=== PATIENT | female | born 1990 | race Caucasian/White ===

== ENCOUNTER 2019-11-28 12:07 | Outpatient (CLI) | payer BC, SELFPAY | END 2019-11-28 12:08 | disposition home or self-care (01) | LOC: SPT 12:09 | PROVIDERS: Family Provider Family Medicine; PCP Family Medicine; Visit Provider Podiatrist Foot & Ankle Surgery | DX: Z46.89 Encounter for fitting and adjustment of other specified devices (principal); S93.692D Other sprain of left foot, subsequent encounter; X58.XXXD Exposure to other specified factors, subsequent encounter | CPT/HCPCS: L4361 ==

== ENCOUNTER 2019-12-22 08:21 | Outpatient (CLI) | payer BC, SELFPAY ==
--- NOTE | 2019-12-22 08:28 | FL_ITS ---
WS: [id number] UPPER GI WITH AIR AND SMALL BOWEL FOLLOW-THROUGH TECHNICAL: Double contrast upper GI with thin and thick barium and Gastrografin. Small bowel follow-t hrough. FLUOROSCOPY TIME: 3.8 minutes CLINICAL INFORMATION: ABDOMINAL PAIN, EPIGASTRIC COMPARISON: None. FINDINGS: Swallowing: Normal. Esophagus: No evidence of high-grade stricture or stenosis. Mild esophageal dysmotility with slightly delayed emptying. Active reflux is visualized into the mid and distal esophagus on the upright imagi ng. Gastroesophageal reflux: Present Stomach: Thickened gastric rugae consistent with gastritis. A few small gastric erosions in the body of the stomach. Duodenum: Normal. Other findings: Cholecystectomy clips. Normal visualized lumbar spine. 5 nonrib-bearing lumbar verteb ral bodies. SMALL BOWEL EXAMINATION Contrast material: 50/50 thin barium sulfate suspension. Transit time: 60 Minutes (normal = 30 - 240 minutes) Small bowel is normal in appearance. Normal jejunum. Ileum is normal in appearance. Normal ileocecal valve. No small bowel stricture, dilatation, adhesion, or mass. The terminal ileum is normal. FL/FL upperGI air smallbowel ser* IMPRESSION: 1. Normal small bowel and ileocecal valve. Normal transit time of 60 minutes. 2. Mild esophageal dysmotility with slightly delayed emptying. 3. Active esophageal reflux in the upright position to the mid and distal esop hagus on the initial imaging. No significant hiatal hernia. 4. A few small gastric erosions suspicious for peptic ulcer disease. Stomach c ould be further evaluated with endoscopy. 5. Thickened gastric rugae consistent with gastritis.
== END 2019-12-22 08:22 | disposition home or self-care (01) ==
LOC: RAD 08:25
PROVIDERS: PCP Family Medicine; Visit Provider Family Medicine
DX: R10.13 Epigastric pain (principal); K21.9 Gastro-esophageal reflux disease without esophagitis
CPT/HCPCS: 74246; 74248

== ENCOUNTER 2020-01-11 06:06 | Day surgery (SDC) | payer BC, SELFPAY ==
[2020-01-10 13:59] VITALS: BMI 21.6
[2020-01-11 06:26] LABS: OR HCG Qualitative Urine Negative (Negative)
--- NOTE | 2020-01-11 06:40 | P.ANESASSM_ITS ---
Pre-Anesthetic Assessment Pre-Anesthetic Assessment: Height/Weight: Height 1.73 m Weight 64.41 kg Preop Diagnosis: vomiting, dysphagia Proposed Procedure: Operation Date: 01/11/20 07:00 Proposed Procedures p EGD(Not Applicable) - Dieudonne Rhodes MD Was Beta Laura taken within 24 hours: N/A Last intake: Intake Last Liquid Date 01/10/20 Last Liquid Time 22:30 Last Solid Date 01/10/20 Last Solid Time 19:30 Social: Social History: Tobacco (1-2cig day) and No alcohol Exam: Pre-Anes Outpt Exam: alert, oriented x 3, clear to auscultation bilaterally and regular rate & rhythm Airway: Submandibular: WNL Cervical ROM: WNL MP: 1 Dentition: Full History/ROS: No significant history except as noted and No significant comp laints Pulmonary: Pulmonary: None reported CV/HEM: CV/HEM: None reported : : None reported Hepatic: Hepatic: None reported GI: GI: GERD Metabolic: Metabolic: None reported Musc/skel: Musc/skel: None reported Neuropsych: Neuropsych: Anxiety Anesthetic Plan: ASA status: 2 Anesthesia: MAC PFSH Anesthesia PFSH: Family History Denies family history of Diabetes Cancer Social History Smoking and tobacco status: current every day smoker Alcohol intake: current Alcohol intake frequency: holidays/special occasions only Household members: none Current occupational status: employed Current occupation: Self employeed, owns a [employer] Female Reproductive History: Date of last menstrual period: 01/10/20 Data Anesthesia Other Labs: Laboratory Results - last 48 hr 01/11/20 06:24 Urine HCG, Qual Negative Cardiac Studies: No Data to Display
[2020-01-11] MEDS: sodium chloride 0.9% 1,000 ML 30 ML IV (06:45)
--- NOTE | 2020-01-11 06:47 | W.PM.OPSUD ---
Surgery/Procedure H&P Update DATE OF PROCEDURE: January 11, 2020 DATE H&P PERFORMED: 01/09/20 H&P UPDATE INFORMATION: No changes to prior documentation PREOP DIAGNOSIS: vomiting, dysphagia PLANNED PROCEDURE: Operation Date: 01/11/20 07:00 Proposed Procedures p EGD(Not Applicable) - Dieudonne Rhodes MD
[2020-01-11 07:03] VITALS: BP 105/63; PULSE 64; RESP 16; TEMP 36.1; O2SAT 98
[2020-01-11 07:12] VITALS: BP 129/85; PULSE 62; RESP 18; O2SAT 100
--- NOTE | 2020-01-11 08:33 | ANE.PACU2 ---
Inpatient post-anesthesia follow up: Airway intact: Yes Vital signs: Temperature 97 F Pulse Rate 62 Respiratory Rate 18 Blood Pressure 129/85 Pulse Oximetry 100 Oxygen Delivery Me thod Room Air Oxygen Flow Rate Fraction of Inspir ed Oxygen Hydration adequate: Yes Nausea and vomiting: No Mental status: Baseline
[2020-01-15 06:50] LABS: H. Pylori / CLO Test Negative
== END 2020-01-11 07:25 | disposition home or self-care (01) ==
PROVIDERS: Anesthesiology; PCP Family Medicine; Visit Provider Surgery
PROC: 0DJ08ZZ Inspection of Upper Intestinal Tract, Via Natural or Artificial Opening Endoscopic (ICD-10-PCS; CPT 43235; principal; 2020-01-11 07:00)
DX: R11.10 Vomiting, unspecified (principal); R13.10 Dysphagia, unspecified; K29.70 Gastritis, unspecified, without bleeding; I10 Essential (primary) hypertension; F41.9 Anxiety disorder, unspecified; F32.9 Major depressive disorder, single episode, unspecified; K21.9 Gastro-esophageal reflux disease without esophagitis; Z87.891 Personal history of nicotine dependence; Z82.49 Family history of ischemic heart disease and other diseases of the circulatory system
CPT/HCPCS: 12345; 43239; 84703; 87077; J2001; J2704; J3010; J7030

== ENCOUNTER 2020-03-04 16:12 | Emergency (ER) | payer BC, SELFPAY ==
[2020-03-04] VITALS (9 sets, daily range): BP systolic 120–136; BP diastolic 73–87; PULSE 78–102; RESP 14–20; TEMP 36.6; O2SAT 95–99; BMI 21.2
--- NOTE | 2020-03-04 16:43 | CTR_ITS ---
PROCEDURE INFORMATION: Exam: CT Abdomen And Pelvis With Contrast Exam date and time: 03/04/2020 5:19 PM Age: 29 years old Clinical indication: Nausea; Abdominal pain; Localized; Right lower quadrant (rlq); Prior surgery; Surgery type: Gb, tubal; Additional info: Abd pain TECHNIQUE: Imaging protocol: Computed tomography of the abdomen and pelvis with intravenous contrast. Radiation optimization: All CT scans at this facility use at least one of these dose optimization techniques: automated exposure control; mA and/or kV adjustment per patient size (includes targeted exams where dose is matched to clinical indication); or iterative reconstruction. Contrast material: OMNI 300; Contrast volume: 95 ml; Contrast route: INTRAVENOUS (IV); COMPARISON: [facility] OB > 14 weeks 10/29/2016 9:11 AM RADIATION DOSE METRICS: Total DLP (mGy-cm): 548.84 FINDINGS: Lungs: Limited assessment lung bases without visible evidence of active cardiopulmonary process. Liver: Unremarkable. No mass. Gallbladder and bile ducts: Status post cholecystectomy. Pancreas: Normal. No ductal dilation. Spleen: Normal. No splenomegaly. Adrenals: Normal. No mass. Kidneys and ureters: Normal. No hydronephrosis. Stomach and bowel: Nonobstructive bowel pattern. No visible adynamic or reactive ileus. Appendix: The appendix is visualized appears noninflamed. Intraperitoneal space: No visible free fluid in the pelvis or generalized ascites. Vasculature: Unremarkable. No abdominal aortic aneurysm. Lymph nodes: No visible mesenteric or retroperitoneal lymphadenopathy. Bladder: Unremarkable as visualized. Reproductive: Unremarkable as visualized. Bones/joints: No visible active osseous pathology. Soft tissues: Unremarkable. CT/CT abdomen pelvis w con* [id number] IMPRESSION: 1. Currently no visible evidence of acute abdominal or pelvic pathologic process. 2. The appendix is visualized appears noninflamed. 3. Status post cholecystectomy. Radiation Dose CTDIVOL = (mGy): DLP = 548.84 (mGy-cm)
--- NOTE | 2020-03-04 16:46 | W.ED.ABDPA2 ---
Documented by User: Chris Diallo DO 03/08/20 15:26 HPI - Abdominal Pain General: Chief Complaint: Abdominal Pain Stated Complaint: abd pain Time Seen by Provider: 03/04/20 16:43 History of Present Illness: HPI narrative: 29-year-old female presents with sudden onset of right lower quadrant pain that began 45 minutes ago. She notices the only way to avoid the pain is to remain very very still even small bumps on the road were exquisitely painful in route to the hospital. She has no history of kidney stone she denies any dysuria urgency or frequency no hematuria. She had a little bit of vague right lower quadrant discomfort for the last 7 days. Her last menstrual period ended a week ago and was a little early for her somewhat light. She has had a lot of nausea but no vomiting or diarrhea. Her last meal was at 11 AM she ate a sandwich. MD elicited complaint: abdominal pain Pertinent past history: other (Previous tubal ligation) Onset (ago): minute(s) (45) Pain Consistency: constant Location: RLQ Severity: severe Quality: stabbing Radiation: none Migration to: no migration Exacerbating factors: movement Relieving factors: rest Associated Symptoms: Reports anorexia, GI cramping and nausea; Denies coffee ground emesis, diarrhea, dyspepsia, dysuria, fever(s), heartburn, hematochezia, hematuria, hematemesis, melena and vomiting Related Data: Date of Last Menstrual Period: 02/19/20 Review of Systems Const: Denies: fever(s) ENMT: Denies: throat pain, ear or mastoid pain, nasal discharge or nasal congestion Card: Denies: chest pain, edema, dyspnea on exertion or orthopnea Resp: Denies: dyspnea, productive cough or non-productive cough GI: Reports: nausea and GI cramping; Denies: vomiting, hematemesis, coffee ground emesis, heartburn, diarrhea, hematochezia or melena : Denies: dysuria or hematuria Skin/Breast: Denies: rash or pruritus PFSH ED PFSH: Surgical History (Updated 03/04/20 @ 16:50 by Chris Diallo DO) History of tubal ligation Hx of cholecystectomy Family History Denies family history of Diabetes Cancer Social History Smoking and tobacco status: current every day smoker Alcohol intake: current Alcohol intake frequency: holidays/special occasions only Household members: none Current occupational status: employed Current occupation: Self employeed, owns a [employer] Female Reproductive History: Date of last menstrual period: 02/19/20 Physical Exam Const: COMMON NORMALS: no acute distress GENERAL APPEARANCE: cooperative and comfortable ORIENTATION/CONSCIOUSNESS: Yes awake, Yes oriented to person, Yes oriented to place and Yes oriented to time HENMT: COMMON NORMALS: normocephalic and atraumatic HEAD & SCALP: normocephalic and atraumatic Eye: COMMON NORMALS: Equal, round and reactive pupils present, EOMs intact bilaterally, conjunctivae normal and no scleral icterus CONJUNCTIVA: Yes conjunctivae normal PUPIL: Yes Equal, round and reactive pupils present Neck/C-Spine: COMMON NORMALS: full ROM, no lymphadenopathy, supple and no JVD Lymph: LYMPHATIC: no lymphadenopathy noted and no lymphedema noted Resp: COMMON NORMALS: normal respiratory effort, No retractions, No use of accessory muscles and clear to auscultation bilaterally AUSCULTATION: clear to auscultation bilaterally Cardio: COMMON NORMALS: no JVD, regular rate, regular rhythm and No murmurs present (Cardio) RATE: regular rate RHYTHM: regular rhythm GI: COMMON NORMALS: No hepatosplenomegaly present AUSCULTATION: Yes normoactive bowel sounds PALPATION: Yes Tenderness to palpation present (GI) Details: RLQ, No Guarding due to palpation present (GI), Yes No hepatosplenomegaly present and Yes Rebound tenderness present Details: McBurney's point RECTAL EXAM: No Excoriation present (GI) OTHER: Initial exam patient has severe right lower quadrant tenderness just above McBurney's point with guarding and rebound. Severe pain to light percussion as well this improved by the end of her ER stay when I transfer care to Dr. Glass she was much less tender CT was unremarkable. Extremity: COMMON NORMALS: normal to inspection, capillary refill normal, no clubbing, cyanosis or edema, no calf tenderness and no pedal edema Neuro: SENSORIUM/ORIENTATION: Yes oriented to person, Yes oriented to place and Yes oriented to time Skin: COMMON NORMALS: no rashes or lesions noted GENERAL SKIN EXAM: no rashes or lesions noted Course Vital Signs: Vital signs: Vital Signs Temperature 97.8 F 03/04/20 16:29 Pulse Rate 78 03/04/20 20:37 Respiratory Rate 17 03/04/20 20:37 Blood Pressure 123/86 03/04/20 20:37 Pulse Oximetry 98 03/04/20 20:37 MDM - Abdominal Pain Lab Data: Labs: Lab Results 03/04/20 03/04/20 03/04/20 Range/Units 16:50 16:50 16:50 WBC 5.6 (4.0-10.0) 10^3/ uL RBC 4.52 (4.1-5.3) 10^6/u L Hgb 13.7 (11.5-15.3) g/dL Hct 42.6 (37.0-47.0) % MCV 94.2 (81-99) fL MCH 30.3 (28.0-34.0) pg MCHC 32.2 (30.0-36.0) g/dL RDW 12.5 (12.1-15.1) % Plt Count 146 (130-400) 10^3/c mm MPV 10.3 (7.4-10.4) fL Neut % (Auto) 53.3 % Lymph % (Auto) 36.3 % [place] % (Auto) 5.8 % Eos % (Auto) 3.8 % Baso % (Auto) 0.4 % Neut # (Auto) 2.97 (1.8-7.7) 10^3/u L Lymph # (Auto) 2.0 (0.8-4.8) 10^3/u L [place] # (Auto) 0.3 (0.2-0.9) 10^3/u L Eos # (Auto) 0.2 (0.0-0.8) 10^3/u L Baso # (Auto) 0.0 (0.0-0.1) 10^3/u L Nucleated RBC % (a uto) 0 % Nucleated RBCs # 0.0 /100WBC Sodium 135 L (136-145) mmol/L Potassium 3.7 (3.5-5.1) mmol/L Chloride 100 (98-107) mmol/L Carbon Dioxide 24 (22-29) mmol/L Anion Gap 14.7 (5-19) BUN 10 (6-20) mg/dL Creatinine 0.6 (0.5-0.9) mg/dL GFR Calculation 117.4 (90-130) mL/min Glucose 98 (65-115) mg/dL Calculated Osmolal ity 276 L (285-295) mOsm/k g Calcium 9.3 (8.5-10.5) mg/dL Total Bilirubin 0.6 (0.15-1.2) mg/dL AST 22 (0-32) U/L ALT 22 (0-33) U/L Alkaline Phosphata se 63 (35-105) IU/L Total Protein 7.4 (6.6-8.7) g/dL Albumin 4.7 (3.5-5.2) g/dL Globulin 2.7 (1.3-4.6) g/dL Lipase 14 (13-60) U/L HCG, Qual Negative (Negative) Urine Color (Yellow) Urine Appearance (CLEAR) Urine pH (5-7) Ur Specific Gravit y (1.005-1.030) Urine Protein (Negative) Urine Glucose (UA) (Normal) Urine Ketones (Negative) Urine Blood (Negative) Urine Nitrate (Negative) Urine Bilirubin (NEGATIVE) Urine Urobilinogen (Negative) mg/dL Ur Leukocyte Camille ase (Negative) 03/04/20 Range/Units 17:12 WBC (4.0-10.0) 10^3/ uL RBC (4.1-5.3) 10^6/u L Hgb (11.5-15.3) g/dL Hct (37.0-47.0) % MCV (81-99) fL MCH (28.0-34.0) pg MCHC (30.0-36.0) g/dL RDW (12.1-15.1) % Plt Count (130-400) 10^3/c mm MPV (7.4-10.4) fL Neut % (Auto) % Lymph % (Auto) % [place] % (Auto) % Eos % (Auto) % Baso % (Auto) % Neut # (Auto) (1.8-7.7) 10^3/u L Lymph # (Auto) (0.8-4.8) 10^3/u L [place] # (Auto) (0.2-0.9) 10^3/u L Eos # (Auto) (0.0-0.8) 10^3/u L Baso # (Auto) (0.0-0.1) 10^3/u L Nucleated RBC % (a uto) % Nucleated RBCs # /100WBC Sodium (136-145) mmol/L Potassium (3.5-5.1) mmol/L Chloride (98-107) mmol/L Carbon Dioxide (22-29) mmol/L Anion Gap (5-19) BUN (6-20) mg/dL Creatinine (0.5-0.9) mg/dL GFR Calculation (90-130) mL/min Glucose (65-115) mg/dL Calculated Osmolal ity (285-295) mOsm/k g Calcium (8.5-10.5) mg/dL Total Bilirubin (0.15-1.2) mg/dL AST (0-32) U/L ALT (0-33) U/L Alkaline Phosphata se (35-105) IU/L Total Protein (6.6-8.7) g/dL Albumin (3.5-5.2) g/dL Globulin (1.3-4.6) g/dL Lipase (13-60) U/L HCG, Qual (Negative) Urine Color Yellow (Yellow) Urine Appearance Clear (CLEAR) Urine pH 5 (5-7) Ur Specific Gravit y 1.020 (1.005-1.030) Urine Protein Neg (Negative) Urine Glucose (UA) Norm (Normal) Urine Ketones 1+ H (Negative) Urine Blood Neg (Negative) Urine Nitrate Negative (Negative) Urine Bilirubin Neg (NEGATIVE) Urine Urobilinogen 1 H (Negative) mg/dL Ur Leukocyte Camille ase Negative (Negative) Discharge Plan Discharge Patient Disposition: Home Clinical Impression: Abdominal pain Qualifiers: Abdominal location: right lower quadrant Qualified Code(s): R10.31 - Right lower quadrant pain Condition: Stable Prescriptions: No Action alprazolam 1 mg tablet 0.5 - 1 mg PO TID PRN (Reason: unknown) RF: 0 duloxetine 30 mg capsule,delayed release(DR/EC) 30 mg PO BID RF: 0 hydrocodone-acetaminophen 5-325 mg tablet 1 tab PO Q6H PRN (Reason: pain) Qty: 20 RF: 0 Zofran 4 mg tablet 4 mg PO Q6H PRN (Reason: nausea and vomiting) Qty: 20 RF: 0 Discharge Orders: Discharge Order (Routine); Ordered 03/04/20 Ordered By: Amisha Decker Referrals: Amisha Decker [Emergency Provider] - 1-3 days (Return to the ER tomorrow morning for recheck of your abdominal pain. Return sooner for increased pain or any new developing symptoms.) Juan Velasquez DO [Primary Care Provider] - Discharge Diet: Clear Liquid Discharge Activity: Increase activity as tolerated Patient Instructions: Abdominal Pain (ED) Activity Restrictions/Additional Instructions: Please return to the ER immediately for any of the signs or symptoms listed on your discharge instruction sheets, worsening/changing of your symptoms, you are not getting better as quickly as expected, or for ANY other cause or concerns. Please return to the ER tomorrow morning for recheck to rule out appendicitis as well as any ovary problems. Return sooner for increased pain, fever, vomiting, vaginal discharge or bleeding, or for any other cause for concern. Discharge Date/Time: 03/04/20 20:36 Sign Out Sign Out Data: Patient Sign Out occurred on 03/04/20 at 18:25. Patient's care was discussed, and care was transferred from to Amisha Decker. Coding Level of Care Code ED Bath Attendant for Chg Fwd Exam Comprehensive Documented by User: Amisha Decker 03/04/20 20:28 HPI - Abdominal Pain General: Chief Complaint: Abdominal Pain Stated Complaint: abd pain Time Seen by Provider: 03/04/20 16:43 PFSH ED PFSH: Surgical History (Updated 03/04/20 @ 16:50 by Chris Diallo DO) History of tubal ligation Hx of cholecystectomy Family History Denies family history of Diabetes Cancer Social History Smoking and tobacco status: current every day smoker Alcohol intake: current Alcohol intake frequency: holidays/special occasions only Household members: none Current occupational status: employed Current occupation: Self employeed, owns a [employer] Vital Signs: Vital signs: Vital Signs Temperature 97.8 F 03/04/20 16:29 Pulse Rate 78 03/04/20 20:37 Respiratory Rate 17 03/04/20 20:37 Blood Pressure 123/86 03/04/20 20:37 Pulse Oximetry 98 03/04/20 20:37 MDM - Abdominal Pain MDM Narrative: Medical decision making narrative: Lui is a very nice 29-year-old female who comes in with 5 days of a dull achy pain and then sudden onset of pain in her right lower quadrant. CT scan reveals no evidence of appendicitis, no evidence of hydronephrosis or ureteral stone and the pelvic organs appeared normal. The patient has a history of ovarian torsion on the left that was manually just torsed in the past by Dr. Dempsey. The patient states this pain does not feel like when she had an ovarian torsion. She did agree to pelvic ultrasound and pelvic ultrasound is normal and tech states that there is no evidence of torsion but only venous flow was documented coming from the ovary no arterial flow. Her reasoning for no torsion is if there is venous flow coming from the ovary there is arterial flow she just cannot locate the arterial flow on ultrasound. The patient did refuse intravaginal pelvic ultrasound which likely would have documented this. I did discuss this with the patient and she would prefer not to have a pelvic ultrasound. She does understand the risks ovarian torsion can increase pain and even infection and sepsis. At this time though she wants to be discharged but does agree to follow-up tomorrow for recheck for appendicitis and if she still having pain she states she would undergo another ultrasound at that time. She is had a tubal ligation and she is not interested in fertility. She states she just wants the pain to improve and her pain is almost gone at this time. She does agree to return sooner if her symptoms change or worsen. Lab Data: Attestation: I reviewed the patient's lab results. Labs: Lab Results 03/04/20 03/04/20 03/04/20 Range/Units 16:50 16:50 16:50 WBC 5.6 (4.0-10.0) 10^3/ uL RBC 4.52 (4.1-5.3) 10^6/u L Hgb 13.7 (11.5-15.3) g/dL Hct 42.6 (37.0-47.0) % MCV 94.2 (81-99) fL MCH 30.3 (28.0-34.0) pg MCHC 32.2 (30.0-36.0) g/dL RDW 12.5 (12.1-15.1) % Plt Count 146 (130-400) 10^3/c mm MPV 10.3 (7.4-10.4) fL Neut % (Auto) 53.3 % Lymph % (Auto) 36.3 % [place] % (Auto) 5.8 % Eos % (Auto) 3.8 % Baso % (Auto) 0.4 % Neut # (Auto) 2.97 (1.8-7.7) 10^3/u L Lymph # (Auto) 2.0 (0.8-4.8) 10^3/u L [place] # (Auto) 0.3 (0.2-0.9) 10^3/u L Eos # (Auto) 0.2 (0.0-0.8) 10^3/u L Baso # (Auto) 0.0 (0.0-0.1) 10^3/u L Nucleated RBC % (a uto) 0 % Nucleated RBCs # 0.0 /100WBC Sodium 135 L (136-145) mmol/L Potassium 3.7 (3.5-5.1) mmol/L Chloride 100 (98-107) mmol/L Carbon Dioxide 24 (22-29) mmol/L Anion Gap 14.7 (5-19) BUN 10 (6-20) mg/dL Creatinine 0.6 (0.5-0.9) mg/dL GFR Calculation 117.4 (90-130) mL/min Glucose 98 (65-115) mg/dL Calculated Osmolal ity 276 L (285-295) mOsm/k g Calcium 9.3 (8.5-10.5) mg/dL Total Bilirubin 0.6 (0.15-1.2) mg/dL AST 22 (0-32) U/L ALT 22 (0-33) U/L Alkaline Phosphata se 63 (35-105) IU/L Total Protein 7.4 (6.6-8.7) g/dL Albumin 4.7 (3.5-5.2) g/dL Globulin 2.7 (1.3-4.6) g/dL Lipase 14 (13-60) U/L HCG, Qual Negative (Negative) Urine Color (Yellow) Urine Appearance (CLEAR) Urine pH (5-7) Ur Specific Gravit y (1.005-1.030) Urine Protein (Negative) Urine Glucose (UA) (Normal) Urine Ketones (Negative) Urine Blood (Negative) Urine Nitrate (Negative) Urine Bilirubin (NEGATIVE) Urine Urobilinogen (Negative) mg/dL Ur Leukocyte Camille ase (Negative) 03/04/20 Range/Units 17:12 WBC (4.0-10.0) 10^3/ uL RBC (4.1-5.3) 10^6/u L Hgb (11.5-15.3) g/dL Hct (37.0-47.0) % MCV (81-99) fL MCH (28.0-34.0) pg MCHC (30.0-36.0) g/dL RDW (12.1-15.1) % Plt Count (130-400) 10^3/c mm MPV (7.4-10.4) fL Neut % (Auto) % Lymph % (Auto) % [place] % (Auto) % Eos % (Auto) % Baso % (Auto) % Neut # (Auto) (1.8-7.7) 10^3/u L Lymph # (Auto) (0.8-4.8) 10^3/u L [place] # (Auto) (0.2-0.9) 10^3/u L Eos # (Auto) (0.0-0.8) 10^3/u L Baso # (Auto) (0.0-0.1) 10^3/u L Nucleated RBC % (a uto) % Nucleated RBCs # /100WBC Sodium (136-145) mmol/L Potassium (3.5-5.1) mmol/L Chloride (98-107) mmol/L Carbon Dioxide (22-29) mmol/L Anion Gap (5-19) BUN (6-20) mg/dL Creatinine (0.5-0.9) mg/dL GFR Calculation (90-130) mL/min Glucose (65-115) mg/dL Calculated Osmolal ity (285-295) mOsm/k g Calcium (8.5-10.5) mg/dL Total Bilirubin (0.15-1.2) mg/dL AST (0-32) U/L ALT (0-33) U/L Alkaline Phosphata se (35-105) IU/L Total Protein (6.6-8.7) g/dL Albumin (3.5-5.2) g/dL Globulin (1.3-4.6) g/dL Lipase (13-60) U/L HCG, Qual (Negative) Urine Color Yellow (Yellow) Urine Appearance Clear (CLEAR) Urine pH 5 (5-7) Ur Specific Gravit y 1.020 (1.005-1.030) Urine Protein Neg (Negative) Urine Glucose (UA) Norm (Normal) Urine Ketones 1+ H (Negative) Urine Blood Neg (Negative) Urine Nitrate Negative (Negative) Urine Bilirubin Neg (NEGATIVE) Urine Urobilinogen 1 H (Negative) mg/dL Ur Leukocyte Camille ase Negative (Negative) Imaging Data ^: CT Abd/Pel: Radiologist's impression: [place] [id number] CT Scan Report Signed Patient: Martina Patrick Unit #: [id number] : 1990 Age/Sex: 29 / F ADM Date: 03/04/20 Loc: ER Room/Bed: Attending Dr: Ordering Provider/Ordering MD: Chris Diallo DO Date of Service: 03/04/20 Procedure(s): CT abdomen pelvis w con* [id number] Accession Number(s): [id number] Report Number: [id number] PROCEDURE INFORMATION: Exam: CT Abdomen And Pelvis With Contrast Exam date and time: 03/04/2020 5:19 PM Age: 29 years old Clinical indication: Nausea; Abdominal pain; Localized; Right lower quadrant (rlq); Prior surgery; Surgery type: Gb, tubal; Additional info: Abd pain TECHNIQUE: Imaging protocol: Computed tomography of the abdomen and pelvis with intravenous contrast. Radiation optimization: All CT scans at this facility use at least one of these dose optimization techniques: automated exposure control; mA and/or kV adjustment per patient size (includes targeted exams where dose is matched to clinical indication); or iterative reconstruction. Contrast material: OMNI 300; Contrast volume: 95 ml; Contrast route: INTRAVENOUS (IV); COMPARISON: [facility] [place] OB > 14 weeks 10/29/2016 9:11 AM RADIATION DOSE METRICS: Total DLP (mGy-cm): 548.84 FINDINGS: Lungs: Limited assessment lung bases without visible evidence of active cardiopulmonary process. Liver: Unremarkable. No mass. Gallbladder and bile ducts: Status post cholecystectomy. Pancreas: Normal. No ductal dilation. Spleen: Normal. No splenomegaly. Adrenals: Normal. No mass. Kidneys and ureters: Normal. No hydronephrosis. Stomach and bowel: Nonobstructive bowel pattern. No visible adynamic or reactive ileus. Appendix: The appendix is visualized appears noninflamed. Intraperitoneal space: No visible free fluid in the pelvis or generalized ascites. Vasculature: Unremarkable. No abdominal aortic aneurysm. Lymph nodes: No visible mesenteric or retroperitoneal lymphadenopathy. Bladder: Unremarkable as visualized. Reproductive: Unremarkable as visualized. Bones/joints: No visible active osseous pathology. Soft tissues: Unremarkable. CT/CT abdomen pelvis w con* [id number] IMPRESSION: 1. Currently no visible evidence of acute abdominal or pelvic pathologic process. 2. The appendix is visualized appears noninflamed. 3. Status post cholecystectomy. Radiation Dose CTDIVOL = (mGy): DLP = 548.84 (mGy-cm) Dictated By: Raymundo Forrest Signed By: Raymundo Forrest Signed Date/Time: 03/04/201827 DD/ 26 US: My impression: Pelvic ultrasound, tech interpretation -no acute findings. No evidence of ovarian torsion on the right. No cyst, no free fluid. Left ovary not seen. Discharge Plan Discharge Patient Disposition: Home Clinical Impression: Abdominal pain Qualifiers: Abdominal location: right lower quadrant Qualified Code(s): R10.31 - Right lower quadrant pain Condition: Stable Prescriptions: No Action alprazolam 1 mg tablet 0.5 - 1 mg PO TID PRN (Reason: unknown) RF: 0 duloxetine 30 mg capsule,delayed release(DR/EC) 30 mg PO BID RF: 0 hydrocodone-acetaminophen 5-325 mg tablet 1 tab PO Q6H PRN (Reason: pain) Qty: 20 RF: 0 Zofran 4 mg tablet 4 mg PO Q6H PRN (Reason: nausea and vomiting) Qty: 20 RF: 0 Discharge Orders: Discharge Order (Routine); Ordered 03/04/20 Ordered By: Amisha Decker Referrals: Amisha Decker [Emergency Provider] - 1-3 days (Return to the ER tomorrow morning for recheck of your abdominal pain. Return sooner for increased pain or any new developing symptoms.) Juan Velasquez DO [Primary Care Provider] - Discharge Diet: Clear Liquid Discharge Activity: Increase activity as tolerated Patient Instructions: Abdominal Pain (ED) Activity Restrictions/Additional Instructions: Please return to the ER immediately for any of the signs or symptoms listed on your discharge instruction sheets, worsening/changing of your symptoms, you are not getting better as quickly as expected, or for ANY other cause or concerns. Please return to the ER tomorrow morning for recheck to rule out appendicitis as well as any ovary problems. Return sooner for increased pain, fever, vomiting, vaginal discharge or bleeding, or for any other cause for concern. Discharge Date/Time: 03/04/20 20:36 Sign Out Sign Out Data: Patient Sign Out occurred on 03/04/20 at 18:25. Patient's care was discussed, and care was transferred from to Amisha Decker. Coding Level of Care Code ED Bath Attendant for Woody Fwd Exam Comprehensive
[2020-03-04] MEDS: morphine 4 mg/mL SDV 1 mL 8 MG IVP (16:56)
[2020-03-04] MEDS: sodium chloride 0.9% 1,000 ML 999 ML IV (16:57)
[2020-03-04] MEDS: ondansetron 2 mg/ML SDV 2 mL 4 MG IVP (16:57)
[2020-03-04 17:02] LABS: Basophils % 0.4 %; Eosinophils # 0.2 10^3/uL (0.0-0.8); Eosinophils % 3.8 %; Hematocrit 42.6 % (37.0-47.0); Hemoglobin 13.7 g/dL (11.5-15.3); Lymphocytes % 36.3 %; Mean Corpuscular HGB Conc 32.2 g/dL (30.0-36.0); Mean Corpuscular Hemoglobin 30.3 pg (28.0-34.0); Mean Corpuscular Volume 94.2 fL (81-99); Mean Platelet Volume 10.3 fL (7.4-10.4); Monocytes # 0.3 10^3/uL (0.2-0.9); Monocytes % 5.8 %; Neutrophils # 2.97 10^3/uL (1.8-7.7); Neutrophils % 53.3 %; Nucleated Red Blood Cells % 0 %; Platelet Count 146 10^3/cmm (130-400); Red Blood Count 4.52 10^6/uL (4.1-5.3); Red Cell Distribution Width 12.5 % (12.1-15.1); White Blood Count 5.6 10^3/uL (4.0-10.0)
[2020-03-04 17:22] LABS: Add Urine Microscopic? NO
[2020-03-04 17:29] LABS: Alanine Aminotransferase 22 U/L (0-33); Albumin Level 4.7 g/dL (3.5-5.2); Alkaline Phosphatase 63 IU/L (35-105); Anion Gap 14.7 (5-19); Aspartate Amino Transferase 22 U/L (0-32); Blood Urea Nitrogen 10 mg/dL (6-20); Calcium 9.3 mg/dL (8.5-10.5); Carbon Dioxide 24 mmol/L (22-29); Chloride 100 mmol/L (98-107); Globulin 2.7 g/dL (1.3-4.6); Glomerular Filtration Rate 117.4 mL/min (90-130); Glucose 98 mg/dL (65-115); Lipase 14 U/L (13-60); Osmolality Calculated 276 mOsm/kg (285-295); Potassium 3.7 mmol/L (3.5-5.1); Sodium 135 mmol/L (136-145); Total Bilirubin 0.6 mg/dL (0.15-1.2); Total Protein 7.4 g/dL (6.6-8.7)
[2020-03-04 17:41] LABS: HCG, Serum Qual Negative (Negative)
[2020-03-04 17:50] LABS: Bilirubin Urine Neg (NEGATIVE); Blood Urine Neg (Negative); Glucose Urine UA Norm (Normal); Ketones Urine 1+ (Negative); Leukocyte Esterase Urine Negative (Negative); Nitrate Urine Negative (Negative); Protein Urine Neg (Negative); Urine Appearance Clear (CLEAR); Urine Color Yellow (Yellow); Urobilinogen Urine 1 mg/dL (Negative); pH Urine 5 (5-7)
[2020-03-04] MEDS: iohexol 300 mg/mL 100 mL Btl IV (18:02)
--- NOTE | 2020-03-04 19:06 | USR_ITS ---
PROCEDURE INFORMATION: Exam: US Nonobstetric Pelvis; Complete Exam date and time: 03/04/2020 8:16 PM Age: 29 years old Clinical indication: Pelvic pain; Prior surgery; Surgery date: 6+ months; Surgery type: Tubal TECHNIQUE: Imaging protocol: Transabdominal pelvic nonobstetric ultrasound. Complete exam. Real time ultrasound with image documentation. COMPARISON: CT abdomen pelvis w con* [id number] 03/04/2020 5:55 PM FINDINGS: Uterus/cervix: Anteverted nongravid multiparous appearing uterus dimensions 8.4 cm x 4.3 cm x 6 cm. Endometrial stripe appears normal measuring a maximum diameter of 8 mm. No free endometrial fluid identified. Normal appearing transition zone. Right adnexa: Right ovary is visualized and measures approximately 4.3 cm x 2.1 cm x 3.1 cm. Simple appearing follicle cysts. Dominant follicle/physiologic cyst measures 18 mm in diameter. Positive vascular flow to Doppler and color assessment. Left adnexa: Left ovary not sonographically visualized. No sonographically visible left adnexal pathologic process. Free fluid: None. Bladder: Unremarkable as imaged. US/US pelvic complete* [id number] IMPRESSION: No grossly visible sonographic evidence of active pelvic pathology.
== END 2020-03-04 20:36 | disposition home or self-care (01) ==
PROVIDERS: Physician Assistant; Emergency Provider Emergency Medicine; PCP Family Medicine
DX: R10.31 Right lower quadrant pain (principal); F17.210 Nicotine dependence, cigarettes, uncomplicated
CPT/HCPCS: 12345; 36415; 74177; 76856; 80053; 81003; 83690; 84703; 85025; 96361; 96374; 96375; 99283; 99284; J2270; J2405; J7030; Q9967

== ENCOUNTER 2020-03-05 11:18 | Emergency (ER) | payer BC, SELFPAY ==
[2020-03-05 11:20] VITALS: BMI 22.0
[2020-03-05 11:25] VITALS: BP 106/69; PULSE 75; RESP 16; TEMP 36.8; O2SAT 97
--- NOTE | 2020-03-05 11:29 | CT_ITS ---
WS: [id number] CT ABDOMEN AND PELVIS WITH CONTRAST HISTORY: abd pain, persistent RIGHT lower quadrant pain for 3 days. TECHNIQUE: Imaging performed of the abdomen and pelvis with IV contrast. Single phase imaging of the abdomen. Coronal and sagittal reformats are submitted. All CT scans at [facility] use at least one of these dose optimization techniques: automated exposure control; mA and/or kV adjustment per patient size (includes targeted exams where dose is matched to clinical indication); or iterativ e reconstruction. IV CONTRAST: Omnipaque 300; 95 mL IV. Oral contrast: No DLP: 542.96 mGy.cm COMPARISON: 03/04/2020 CT and ultrasound. Lower thorax: Lung bases are clear. Heart is normal size. No hiatal hernia. Liver/biliary system: Normal size liver. There is mild central bile duct dilatation which is probably physiologic and related to prior cholecystectomy. Mild hepatic steatosis along the falciform ligamen t. Gallbladder: Status post cholecystectomy. Pancreas: Normal. Spleen: Normal. Adrenal glands: Normal. Right kidney: Normal. Left kidney: Normal. Aorta: Normal. Lymphadenopathy: None. Free fluid: There is a small amount of free fluid in the pelvis. GI tract: Appendix is identified in the RIGHT lower quadrant and normal. There is still air within th e appendix with no increase in size. There is moderate fecal retention throughout the entire colon, m ost significant in the sigmoid and rectal region. Abdominal wall: Unremarkable abdominal wall. No hernia. Pelvis: Uterus is anteverted. Small amount of fluid along the endometrial canal. The RIGHT ovary is e nlarged and contains several small follicles and cysts. Peripheral enhancement within one of the cyst is probably a corpus luteum and may have undergone rupture. Corpus luteal cyst measures 13 mm. Bones: Unremarkable. Notified Chris Diallo DO at 03/05/2020 12:[address]/CT abdomen pelvis w con* [id number] IMPRESSION: 1. Normal appendix. 2. Small amount of free fluid in the pelvis is new since 03/04/2020. 3. Slightly enlarged RIGHT ovary with a peripherally enhancing 13 mm cyst whic h is probably a corpus luteal cyst and may have hemorrhaged and be collapsing. 4. Constipation. 5. Prior cholecystectomy.
--- NOTE | 2020-03-05 11:47 | W.ED.ABDPA2 ---
HPI - Abdominal Pain General: Chief Complaint: Abdominal Pain Stated Complaint: ABD PAIN Time Seen by Provider: 03/05/20 11:29 History of Present Illness: HPI narrative: 29-year-old female presents to the emergency room for recheck she still having persistent right-sided pain although it has migrated a little higher in the abdomen at this point she was seen last night CT was negative for acute appendicitis which is what it appeared most likely it burst based on her physical exam she did have a transabdominal pelvic ultrasound there was good venous blood flow out of the right ovary but no arterial flow was noted. MD elicited complaint: abdominal pain Pertinent past history: constipation Onset (ago): day(s) Pain Consistency: intermittent Location: Diffuse (Localized slightly to the right side) Quality: cramping Radiation: R flank Migration to: RLQ and R flank Exacerbating factors: movement Relieving factors: rest Associated Symptoms: Reports anorexia, change in bowel habits, constipation, GI cramping, poor appetite and vomiting; Denies coffee ground emesis, diarrhea, dyspepsia, fever(s), heartburn, hematochezia, hematuria, hematemesis, fecal incontinence, loose stools, melena, nausea and syncope Related Data: Date of Last Menstrual Period: 02/27/20 Review of Systems Const: Denies: fever(s) ENMT: Denies: throat pain, ear or mastoid pain, nasal discharge or nasal congestion Card: Denies: syncope Resp: Denies: dyspnea, productive cough or non-productive cough GI: Reports: vomiting, constipation, GI cramping and change in bowel habits; Denies: nausea, hematemesis, coffee ground emesis, heartburn, diarrhea, fecal incontinence, hematochezia or melena : Denies: hematuria Skin/Breast: Denies: rash or pruritus PFSH ED PFSH: Surgical History History of tubal ligation Hx of cholecystectomy Family History Denies family history of Diabetes Cancer Social History Smoking and tobacco status: current every day smoker Alcohol intake: current Alcohol intake frequency: holidays/special occasions only Household members: none Current occupational status: employed Current occupation: Self employeed, owns a [employer] Female Reproductive History: Date of last menstrual period: 02/27/20 Physical Exam Const: GENERAL APPEARANCE: cooperative ORIENTATION/CONSCIOUSNESS: Yes awake, Yes oriented to person, Yes oriented to place and Yes oriented to time HENMT: COMMON NORMALS: normocephalic and atraumatic HEAD & SCALP: normocephalic and atraumatic Eye: COMMON NORMALS: Equal, round and reactive pupils present, EOMs intact bilaterally, conjunctivae normal and no scleral icterus CONJUNCTIVA: Yes conjunctivae normal PUPIL: Yes Equal, round and reactive pupils present Neck/C-Spine: COMMON NORMALS: full ROM, no lymphadenopathy, supple and no JVD Lymph: LYMPHATIC: no lymphadenopathy noted and no lymphedema noted Resp: COMMON NORMALS: normal respiratory effort, No retractions, No use of accessory muscles and clear to auscultation bilaterally AUSCULTATION: clear to auscultation bilaterally Cardio: COMMON NORMALS: no JVD, regular rate, regular rhythm and No murmurs present (Cardio) RATE: regular rate RHYTHM: regular rhythm GI: COMMON NORMALS: No hepatosplenomegaly present AUSCULTATION: Yes normoactive bowel sounds PALPATION: Yes Tenderness to palpation present (GI) (Right mid abdomen) Details: RLQ, No Guarding due to palpation present (GI) and Yes No hepatosplenomegaly present Extremity: COMMON NORMALS: normal to inspection, capillary refill normal, no clubbing, cyanosis or edema, no calf tenderness and no pedal edema Neuro: SENSORIUM/ORIENTATION: Yes oriented to person, Yes oriented to place and Yes oriented to time Skin: COMMON NORMALS: no rashes or lesions noted GENERAL SKIN EXAM: no rashes or lesions noted Course Vital Signs: Vital signs: Vital Signs Temperature 98.2 F 03/05/20 14:11 Pulse Rate 82 03/05/20 14:11 Respiratory Rate 18 03/05/20 14:11 Blood Pressure 122/85 03/05/20 14:11 Pulse Oximetry 96 03/05/20 14:11 MDM - Abdominal Pain MDM Narrative: Medical decision making narrative: Pelvic ultrasound shows fluid in the pelvis I think that was causing some of her pain as well as constipation her white count is unremarkable. We will have her use mag citrate at home hydrocodone and antiemetics. Rest suspect the fluid from hemorrhagic cyst this was causing major of her pain she is worsening or change symptoms return her appendix is well-visualized and is normal. Lab Data: Labs: Lab Results 03/05/20 03/05/20 Range/Units 11:46 11:46 WBC 5.6 (4.0-10.0) 10^3/ uL RBC 4.65 (4.1-5.3) 10^6/u L Hgb 14.0 (11.5-15.3) g/dL Hct 43.2 (37.0-47.0) % MCV 92.9 (81-99) fL MCH 30.1 (28.0-34.0) pg MCHC 32.4 (30.0-36.0) g/dL RDW 12.4 (12.1-15.1) % Plt Count 145 (130-400) 10^3/c mm MPV 10.3 (7.4-10.4) fL Neut % (Auto) 67.4 % Lymph % (Auto) 22.2 % Cook % (Auto) 5.4 % Eos % (Auto) 3.9 % Baso % (Auto) 0.9 % Neut # (Auto) 3.77 (1.8-7.7) 10^3/u L Lymph # (Auto) 1.2 (0.8-4.8) 10^3/u L Cook # (Auto) 0.3 (0.2-0.9) 10^3/u L Eos # (Auto) 0.2 (0.0-0.8) 10^3/u L Baso # (Auto) 0.1 (0.0-0.1) 10^3/u L Nucleated RBC % (a uto) 0 % Nucleated RBCs # 0.0 /100WBC Sodium 134 L (136-145) mmol/L Potassium 4.3 (3.5-5.1) mmol/L Chloride 103 (98-107) mmol/L Carbon Dioxide 23 (22-29) mmol/L Anion Gap 12.3 (5-19) BUN 8 (6-20) mg/dL Creatinine 0.6 (0.5-0.9) mg/dL GFR Calculation 117.4 (90-130) mL/min Glucose 104 (65-115) mg/dL Calculated Osmolal ity 274 L (285-295) mOsm/k g Calcium 8.8 (8.5-10.5) mg/dL Total Bilirubin 0.8 (0.15-1.2) mg/dL AST 29 (0-32) U/L ALT 25 (0-33) U/L Alkaline Phosphata se 63 (35-105) IU/L Total Protein 7.0 (6.6-8.7) g/dL Albumin 4.1 (3.5-5.2) g/dL Globulin 2.9 (1.3-4.6) g/dL Discharge Plan Discharge Patient Disposition: Home Clinical Impression: Ovarian cyst, Constipation Condition: Stable Prescriptions: New hydrocodone-acetaminophen 5-325 mg tablet 1 tab PO Q6H PRN (Reason: pain) Qty: 20 RF: 0 Zofran 4 mg tablet 4 mg PO Q6H PRN (Reason: nausea and vomiting) Qty: 20 RF: 0 No Action alprazolam 1 mg tablet 0.5 - 1 mg PO TID PRN (Reason: unknown) RF: 0 duloxetine 30 mg capsule,delayed release(DR/EC) 30 mg PO BID RF: 0 Discharge Orders: Discharge Order (Routine); Ordered 03/05/20 Ordered By: Chris Diallo Referrals: Juan Velasquez, DO [Primary Care Provider] - Discharge Diet: Usual diet Discharge Activity: Increase activity as tolerated Activity Restrictions/Additional Instructions: Return if you have any further problems. Mag citrate for constipation you can get this [id number] use half a bottle every 4 to 6 hours until desired results are achieved Discharge Date/Time: 03/05/20 14:18 Coding Level of Care Code ED Pharmacy Informatics Manager for [facility]
[2020-03-05 11:51] LABS: Basophils # 0.1 10^3/uL (0.0-0.1); Basophils % 0.9 %; Eosinophils # 0.2 10^3/uL (0.0-0.8); Eosinophils % 3.9 %; Hematocrit 43.2 % (37.0-47.0); Lymphocytes # 1.2 10^3/uL (0.8-4.8); Lymphocytes % 22.2 %; Mean Corpuscular HGB Conc 32.4 g/dL (30.0-36.0); Mean Corpuscular Hemoglobin 30.1 pg (28.0-34.0); Mean Corpuscular Volume 92.9 fL (81-99); Mean Platelet Volume 10.3 fL (7.4-10.4); Monocytes # 0.3 10^3/uL (0.2-0.9); Monocytes % 5.4 %; Neutrophils # 3.77 10^3/uL (1.8-7.7); Neutrophils % 67.4 %; Nucleated Red Blood Cells % 0 %; Platelet Count 145 10^3/cmm (130-400); Red Blood Count 4.65 10^6/uL (4.1-5.3); Red Cell Distribution Width 12.4 % (12.1-15.1); White Blood Count 5.6 10^3/uL (4.0-10.0)
[2020-03-05] MEDS: ondansetron 2 mg/ML SDV 2 mL 4 MG IVP ×2 (11:59→13:51)
[2020-03-05] MEDS: sodium chloride 0.9% 1,000 ML 999 ML IV (12:00)
[2020-03-05] MEDS: iohexol 300 mg/mL 100 mL Btl IV (12:14)
[2020-03-05 13:03] LABS: Alanine Aminotransferase 25 U/L (0-33); Albumin Level 4.1 g/dL (3.5-5.2); Alkaline Phosphatase 63 IU/L (35-105); Anion Gap 12.3 (5-19); Aspartate Amino Transferase 29 U/L (0-32); Blood Urea Nitrogen 8 mg/dL (6-20); Calcium 8.8 mg/dL (8.5-10.5); Carbon Dioxide 23 mmol/L (22-29); Chloride 103 mmol/L (98-107); Globulin 2.9 g/dL (1.3-4.6); Glomerular Filtration Rate 117.4 mL/min (90-130); Glucose 104 mg/dL (65-115); Osmolality Calculated 274 mOsm/kg (285-295); Potassium 4.3 mmol/L (3.5-5.1); Sodium 134 mmol/L (136-145); Total Bilirubin 0.8 mg/dL (0.15-1.2)
[2020-03-05 13:47] VITALS: RESP 18
[2020-03-05] MEDS: morphine 4 mg/mL SDV 1 mL 8 MG IVP (13:47)
[2020-03-05 14:11] VITALS: BP 122/85; PULSE 82; RESP 18; TEMP 36.8; O2SAT 96
== END 2020-03-05 14:18 | disposition home or self-care (01) ==
PROVIDERS: Emergency Provider Family Medicine; PCP Family Medicine
DX: K59.00 Constipation, unspecified (principal); N83.209 Unspecified ovarian cyst, unspecified side; F17.210 Nicotine dependence, cigarettes, uncomplicated
CPT/HCPCS: 12345; 36415; 74177; 80053; 85025; 96361; 96374; 96375; 96376; 99282; 99283; J2270; J2405; J7030; Q9967

== ENCOUNTER 2021-03-25 11:08 | Outpatient (CLI) | payer OTHER, SELFPAY ==
--- NOTE | 2021-03-25 11:13 | XR_ITS ---
WS: [id number] LEFT KNEE: 3 VIEW(S) TECHNIQUE: AP, oblique(s) and lateral. HISTORY: KNEE JOIN PAIN, LEFT COMPARISON: None available. No fracture or dislocation. No joint space narrowing or osteophytes. There is a small amount of soft tissue edema surrounding the knee, seen best on the lateral projectio n. No focal air collection identified. Soft tissue calcification adjacent to the proximal lateral tibia. XR/XR knee LT 3V* [id number] IMPRESSION: 1. Mild soft tissue edema surrounding the knee. No subcutaneous air. 2. No joint effusion or bone destruction.
== END 2021-03-25 11:09 | disposition home or self-care (01) ==
PROVIDERS: PCP Family Medicine; Visit Provider Family Medicine
DX: M25.562 Pain in left knee (principal); R60.0 Localized edema
CPT/HCPCS: 73562

== ENCOUNTER 2022-10-27 13:53 | Outpatient (CLI) | payer SELFPAY ==
--- NOTE | 2022-10-27 14:02 | MM_ITS ---
WS: [id number] BILATERAL 3D TOMOSYNTHESIS DIGITAL DIAGNOSTIC MAMMOGRAPHY WITH CAD CLINICAL INFORMATION: LEFT BREAST LUMP 4OCLOCK HISTORY: Palpable lump LEFT breast COMPARISON: None. TECHNIQUE: Bilateral CC, MLO, and ML views. FINDINGS: The breasts are composed of heterogeneous fibroglandular density, which can limit the detection of sm all underlying mass lesions. Palpable marker LEFT breast. Dense underlying heterogeneous tissue in th is area. Ultrasound of this area is pending. No suspicious abnormalities RIGHT breast. ULTRASOUND BREAST LEFT TECHNIQUE: Ultrasound left breast focused area of concern. CLINICAL INFORMATION: LEFT BREAST LUMP 4OCLOCK FINDINGS: Ultrasound LEFT breast in the area of concern 4:00 position. Incidental ductal ectasia is seen deep t o the areola. No cystic or solid lesions. No suspicious lesions to target for biopsy. Findings are [place]ign. MM/[place] [id number] IMPRESSION: BI-RADS: 2-Benign FOLLOW UP: Age 39 Recommend annual screening mammography age 40
== END 2022-10-27 13:54 | disposition home or self-care (01) ==
LOC: RAD 13:58
PROVIDERS: PCP Family Medicine; Visit Provider Family Medicine
DX: N63.23 Unspecified lump in the left breast, lower outer quadrant (principal)
CPT/HCPCS: 76642; 77062; G0279

== ENCOUNTER 2024-08-05 14:22 | Emergency (ER) | payer OTHER, SELFPAY ==
[2024-08-05 14:26] VITALS: BP 129/93; PULSE 104; RESP 18; O2SAT 98
--- NOTE | 2024-08-05 14:31 | XRR_ITS ---
PROCEDURE INFORMATION: Exam: XR Chest Exam date and time: 08/05/2024 2:37 PM Age: 33 years old Clinical indication: Dyspnea; Additional info: Weakness TECHNIQUE: Imaging protocol: Radiologic exam of the chest. Views: 1 view. COMPARISON: CT abdomen pelvis w con* [id number] 03/05/2020 12:07 PM FINDINGS: Lungs: No focal consolidation. Pleural spaces: No evidence of pneumothorax. No evidence of pleural effusion. Heart/Mediastinum: Cardiomediastinal silhouette is within normal limits. Bones/joints: No evidence of acute osseous abnormality. XR/XR chest 1V portable [id number] IMPRESSION: 1. No acute cardiopulmonary abnormality.
--- NOTE | 2024-08-05 14:31 | CTR_ITS ---
PROCEDURE INFORMATION: Exam: CT Head Without Contrast Exam date and time: 08/05/2024 2:35 PM Age: 33 years old Clinical indication: Stroke-like symptoms; Right upper extremity numbness/paresthesia; Additional info: Possible stroke TECHNIQUE: Imaging protocol: Computed tomography of the head without contrast. Radiation optimization: All CT scans at this facility use at least one of these dose optimization techniques: automated exposure control; mA and/or kV adjustment per patient size (includes targeted exams where dose is matched to clinical indication); or iterative reconstruction. Other technique: STROKE PROTOCOL was implemented. COMPARISON: No relevant prior studies available. RADIATION DOSE METRICS: Total DLP (mGy-cm): 1052.2 FINDINGS: Brain: No evidence of intra-axial or extra-axial hemorrhage. No mass effect or midline shift. Corona-white differentiation is maintained. Basilar cisterns are patent. Cerebral ventricles: No hydrocephalus. Paranasal sinuses: The visualized paranasal sinuses are well aerated. Mastoid air cells: The visualized mastoids and middle ears are clear. Bones: Calvarium is intact. No evidence of acute fracture. Soft tissues: No gross soft tissue abnormality. CT/CT head wo con* [id number] IMPRESSION: 1. No acute intracranial abnormality. ASSESSMENT: ASPECTS ([place] Stroke Program Early CT Score) is 10.
[2024-08-05 14:38] LABS: Glucose Point of Care 96 mg/dL (70-110)
--- NOTE | 2024-08-05 14:42 | ED_ITS ---
HPI - Weakness 2 General: Chief complaint: Weakness Stated complaint: rt side numbness, headache Time Seen by Provider: 08/05/24 14:27 History of Present Illness: 33-year-old female with a history of dep ression but is otherwise healthy who presents emergency room with a headache and neurologic symptoms. She says she was doing sit ups. She works out daily. She says while she was doing that she developed a posterior headache. She felt dizzy. She also feels like her right side including her face arm and leg all feels heavy. She is not weak. She has no sensory deficits. No altered mental status. No slurred speech. No facial droop. No chest pain. No fevers. No cough. No abdominal pain. No nausea or vomiting. She says she had a similar type episode after she had her child. She said she was diagnosed with a TIA at that time. Symptoms resolved and workup was negative at the time. Review of Systems 2 Narrative: Constitutional symptoms: Negative except as documented in HPI. Skin symptoms: Negative except as documented in HPI. Eye symptoms: Negative except as documented in HPI. ENMT symptoms: Negative except as documented in HPI. Respiratory symptoms: Negative except as documented in HPI. Cardiovascular symptoms: Negative except as documented in HPI. Gastrointestinal symptoms: Negative except as documented in HPI. Genitourinary symptoms: Negative except as documented in HPI. Musculoskeletal symptoms: Negative except as documented in HPI. Neurologic symptoms: Negative except as documented in HPI. Psychiatric symptoms: Negative except as documented in HPI. Endocrine symptoms: Negative except as documented in HPI. PFSH ED 2 PFSH: Medical History (Updated 08/05/24 @ 16:34 by Gin Romero MD) Generalized anxiety disorder Major depression Surgical History Hx of cholecystectomy History of tubal ligation Family History Denies family history of Diabetes Cancer Social History Smoking and tobacco/nicotine status: current every day tobacco/nicotine user Alcohol intake: current Alcohol intake frequency: holidays/special occasions only Substance/Drug Use: never Household members: none Current occupational status: employed Current occupation: Self employeed, owns a [employer] Physical Exam 2 Narrative: EXAM NARRATIVE: General: Alert, no acute distress. Skin: Warm, dry. Head: Normocephalic, atraumatic. Neck: Supple, trachea midline. Eye: Extraocular movements are intact. Ears, nose, mouth and throat: mucosa moist. Cardiovascular: Regular, Normal peripheral perfusion. Respiratory: Lungs are clear to auscultation, respirations are non-labored, breath sounds are equal, Symmetrical chest wall expansion. Gastrointestinal: Soft, Nontender, Non distended Musculoskeletal: Normal ROM, no deformity. Neurological: Alert and oriented, No focal neurological deficit observed. Psychiatric: Cooperative, appropriate mood & affect. Course 2 Vital Signs: Vital signs: Vital Signs Pulse Rate 86 08/05/24 16:13 Respiratory Rate 14 08/05/24 16:13 Blood Pressure 138/76 08/05/24 16:13 Pulse Oximetry 97 08/05/24 16:13 Oxygen Delivery Me thod Room Air 08/05/24 16:13 MDM - Weakness Medical Decision Making Medical decision making: Differential diagnosis for patient with focal neurologic deficit(s) includes but not limited to and based on the above HPI, review of systems and physical exam: ischemic stroke, hemorrhagic stroke and embolic stroke secondary to atrial fibrillation), TIA, Concepcion's palsey, metabolic encephalopathy with previous stroke. Orders placed to evaluate differential diagnosis based on the above differential, HPI and physical exam NIH Stroke Scale/Score (NIHSS) from [email or web address] on 08/05/2024 All calculations should be rechecked by clinician prior to use RESULT SUMMARY: 0 points NIH Stroke Scale INPUTS: 1A: Level of consciousness ?> 0 = Alert; keenly responsive 1B: Ask month and age ?> 0 = Both questions right 1C: 'Blink eyes' & 'squeeze hands' ?> 0 = Performs both tasks 2: Horizontal extraocular movements ?> 0 = Normal 3: Visual mccann ?> 0 = No visual loss 4: Facial palsy ?> 0 = Normal symmetry 5A: Left arm motor drift ?> 0 = No drift for 10 seconds 5B: Right arm motor drift ?> 0 = No drift for 10 seconds 6A: Left leg motor drift ?> 0 = No drift for 5 seconds 6B: Right leg motor drift ?> 0 = No drift for 5 seconds 7: Limb Ataxia ?> 0 = No ataxia 8: Sensation ?> 0 = Normal; no sensory loss 9: Language/aphasia ?> 0 = Normal; no aphasia 10: Dysarthria ?> 0 = Normal 11: Extinction/inattention ?> 0 = No abnormality CT head: No acute intracranial process. no intracranial hemorrhage, no evidence of infarct. no evidence of acute fracture.This was reviewed and interpreted by myself the ER physician. Chest x-ray: No acute process. No infiltrate. No pneumothorax. This was reviewed and interpreted by myself the emergency room physician. I also reviewed the radiology report. EKG: Time 1447. Rate 83. Normal sinus rhythm, No ST-T changes, no ectopy, normal MO & QRS intervals, This was reviewed and interpreted by myself the ER physician at 1450 Lab Review: Laboratory results were reviewed and interpreted by myself the emergency room physician. No leukocytosis. No anemia. No renal failure. She does have a slight urinary tract infection. D-dimer was elevated so given that she had had chest pain. She was tachycardic initially and with this elevated D-dimer a CTA was ordered of the chest as well. CTA of the head and neck: No obvious stenosis or occlusions are identified. No mass. This was reviewed and interpreted by myself the emergency room physician. I also reviewed the radiology report. There was some reports of some C3/C4 foraminal stenosis. This might actually could explain her symptoms. She was doing sit ups. May have agitated nerve and cause some radiculopathy. CTA of the chest with PE protocol: No evidence of pulmonary embolism or other pulmonary pathology. This was reviewed and interpreted by myself the emergency room physician. I also reviewed the radiology report. I reviewed the patient's medical record. Reexamination: Patient symptoms resolved after receiving Toradol. Patient remained stable. No increased work of breathing. No altered mental status. No focal motor deficits. Assessment and plan: Headache Radiculopathy Cervical foraminal stenosis Urinary tract infection ? Toradol in the emergency room with improvement of symptoms. - Discharged home - Discussed plan with patient. Answered any questions. - Evaluation and treatment of this problem were appropriate in the emergency setting. Lab Data 08/05/24 15:02 08/05/24 15:02 Radiology Impressions Chest X-Ray 08/05/24 14:31 IMPRESSION: 1. No acute cardiopulmonary abnormality. Head CT 08/05/24 14:31 IMPRESSION: 1. No acute intracranial abnormality. ASSESSMENT: ASPECTS ([place] Stroke Program Early CT Score) is 10. ADDENDUM: 08/05/24 [id number] The findings were verbally communicated by telephone with Dr. ROMERO at 2:46 PM PRODUCE WRAPPER on 08/05/2024. Head/Neck CTA 08/05/24 15:02 IMPRESSION: 1. No evidence of large vessel occlusion or acute thrombosis in the head. IMPRESSION: 1. No evidence of acute thrombosis or hemodynamically significant stenosis in the neck. 2. Moderate right-sided foraminal stenosis at C3-C4. Consider correlation with follow-up nonemergent MRI if there is concern for neural impingement. REFERENCES: NASCET CRITERIA. The degree of stenosis in the cervical segment of the internal carotid artery is based on NASCET criteria. Normal is no stenosis. Mild is less than 50% stenosis. Moderate is 50-69% stenosis. Severe is 70% to 99% stenosis. Total occlusion is no detectable patent lumen. Chest CTA 08/05/24 15:38 IMPRESSION: 1. No evidence of PE or acute aortic abnormality. Laboratory Results WBC 5.76 10^3/uL (3.29-11.43) 08/05/24 15:02 RBC 4.62 10^6/uL (3.85-5.65) 08/05/24 15:02 Hgb 13.80 g/dL (11.27-16.99) 08/05/24 15:02 Hct 41.6 % (36-47) 08/05/24 15:02 MCV 90.0 fl (85-98) 08/05/24 15:02 MCH 29.9 pg (27-33) 08/05/24 15:02 MCHC 33.2 g/dL (30-55) 08/05/24 15:02 RDW 11.7 % (12.1-15.1) L 08/05/24 15:02 Plt Count 150 10^3/cmm (157-399) L 08/05/24 15:02 MPV 10.1 fL (7.4-10.4) 08/05/24 15:02 Neut % (Auto) 57.4 % 08/05/24 15:02 Lymph % (Auto) 34.5 % 08/05/24 15:02 [place] % (Auto) 6.1 % 08/05/24 15:02 Eos % (Auto) 1.2 % 08/05/24 15:02 Baso % (Auto) 0.5 % 08/05/24 15:02 Neut # (Auto) 3.30 10^3/uL (1.8-7.7) 08/05/24 15:02 Lymph # (Auto) 2.0 10^3/uL (0.8-4.8) 08/05/24 15:02 [place] # (Auto) 0.4 10^3/uL (0.2-0.9) 08/05/24 15:02 Eos # (Auto) 0.1 10^3/uL (0.0-0.8) 08/05/24 15:02 Baso # (Auto) 0.0 10^3/uL (0.0-0.1) 08/05/24 15:02 Nucleated RBC % (auto) 0 % 08/05/24 15:02 Nucleated RBCs # 0.0 /100WBC 08/05/24 15:02 PT 12.30 SECONDS (12.1-14.9) 08/05/24 15:02 INR 0.86 (0.8-1.2) 08/05/24 15:02 APTT 29.3 SECONDS (23.9-36.7) 08/05/24 15:02 D-Dimer 0.63 ug/mLFEU (0-0.59) H 08/05/24 15:02 Sodium 138 mmol/L (136-145) 08/05/24 15:02 Potassium 3.7 mmol/L (3.5-5.1) 08/05/24 15:02 Chloride 100 mmol/L (98-107) 08/05/24 15:02 Carbon Dioxide 24 mmol/L (22-29) 08/05/24 15:02 Anion Gap 17.7 (5-19) 08/05/24 15:02 BUN 10 mg/dL (6-20) 08/05/24 15:02 Creatinine 0.7 mg/dL (0.5-0.9) 08/05/24 15:02 GFR Calculation 95.8 mL/min (90-130) 08/05/24 15:02 Glucose 97 mg/dL (65-115) 08/05/24 15:02 POC Glucose 96 mg/dL (70-110) 08/05/24 14:34 Calculated Osmolality 285 mOsm/kg (285-295) 08/05/24 15:02 Calcium 9.0 mg/dL (8.5-10.5) 08/05/24 15:02 Total Bilirubin 0.7 mg/dL (0.15-1.2) 08/05/24 15:02 AST 17 U/L (0-32) 08/05/24 15:02 ALT 15 U/L (0-33) 08/05/24 15:02 Alkaline Phosphatase 60 U/L (35-105) 08/05/24 15:02 Total Protein 7.2 g/dL (6.6-8.7) 08/05/24 15:02 Albumin 4.5 g/dL (3.5-5.2) 08/05/24 15:02 Globulin 2.7 g/dL (1.3-4.6) 08/05/24 15:02 HCG, Qual Negative (Negative) 08/05/24 15:02 Urine Color Yellow (Yellow) 08/05/24 15:00 Urine Appearance Clear (CLEAR) 08/05/24 15:00 Urine pH 6.0 (5-7) 08/05/24 15:00 Ur Specific [place] 1.010 (1.005-1.030) 08/05/24 15:00 Urine Protein Negative (Negative) 08/05/24 15:00 Urine Glucose (UA) Negative (Normal) 08/05/24 15:00 Urine Ketones Negative (Negative) 08/05/24 15:00 Urine Blood Negative (Negative) 08/05/24 15:00 Urine Nitrate Negative (Negative) 08/05/24 15:00 Urine Bilirubin Negative (Negative) 08/05/24 15:00 Urine Urobilinogen 1.0 mg/dL (Negative) 08/05/24 15:00 Ur Leukocyte Esterase 1+ (Negative) A 08/05/24 15:00 Urine RBC 0-2 /hpf (0-2) 08/05/24 15:00 Urine WBC 6-10 /hpf (0-5) 08/05/24 15:00 Ur Squamous Epith Cells 6-10 /hpf (0-5) 08/05/24 15:00 Amorphous Sediment Not Reportable 08/05/24 15:00 Urine Bacteria 1+ /hpf (NONE) H 08/05/24 15:00 Hyaline Casts 0-4 /lpf H 08/05/24 15:00 Coronavirus (PCR) Negative (Negative) 08/05/24 14:52 Influenza A (PCR) Negative (Negative) 08/05/24 14:52 Influenza Type B (PCR) Negative (Negative) 08/05/24 14:52 RSV (PCR) Negative (Negative) 08/05/24 14:52 All radiology interpretation(s) finalized by discharge Discharge Plan Discharge Patient Disposition: Home Clinical Impression: Headache, Radiculopathy, Cervical spinal stenosis, Urinary tract infection Condition: Stable Prescriptions: New cephalexin 500 mg tablet 500 mg PO TID 5 Days Qty: 15 0RF No Action venlafaxine 25 mg tablet 25 mg PO BID Qty: 60 5RF Discharge Orders: Discharge ED (Routine); Ordered 08/05/24 Ordered By: Gin Romero Referrals: Juan Velasquez DO [Primary Care Provider] - Discharge Diet: Usual diet Discharge Activity: Increase activity as tolerated Patient Instructions: Acute Headache (ED), Cervical Radiculopathy (ED), Opioid Safety, Pain Management Activity Restrictions/Additional Instructions: Thank you for choosing [facility] for your healthcare needs today. Please realize this is an emergency room and that we are providing you with a medical screening exam and this may not be complete and all inclusive of all the testing and or work up that you may need to determine your ailment or severity of your illness. You have been screened and evaluated and felt safe for discharge. Health conditions do change or evolve sometimes and as such it is important that you follow up with your Primary Doctor to be re checked, 3-5 days is a general good time frame for follow up. You are always welcome to return to the ED for re assessment if your symptoms are worsening or you have new concerns Coding Level of Care Code ED Home Health Outreach Coordinator for [facility] Related Data Previous Rx's Medication Instructions Recorded venlafaxine 25 mg tablet 25 mg PO BID #60 tabs 11/05/23 cephalexin 500 mg tablet 500 mg PO TID 5 days #15 tabs 08/05/24 Allergies Allergy/AdvReac Type Severity Reaction Status Date / Time fluoxetine [From Prozac] Allergy Intermediate low energy Verified 11/12/22 12:57 buspar Allergy Intermediate suicidal Uncoded 11/12/22 12:57 thoughts
--- NOTE | 2024-08-05 14:47 | ECG_ITS ---
[facility] Date: 2024-08-05 Pat Name: Martina Brown Department: Room: Gender: Female Ichthyology Teacher: : 1990 Requested By: Gin Alonso Order Number: [id number] Ayala MD: Ravi Black M.D. Measurements Intervals [place] Rate: 83 P: 58 HI: 180 QRS: 90 QRSD: 83 T: 68 QT: 338 QTc: 399 Interpretive Statements SINUS RHYTHM SEPTAL MYOCARDIAL INFARCTION , OF INDETERMINATE AGE [40+ ms Q WAVE IN V1/V2] No previous ECG available for comparison Electronically Signed On 08-05-2024 21:24:57 METAL CASKET [employer]KER by Ravi Black M.D. [email or web address]
--- NOTE | 2024-08-05 15:02 | CTR_ITS ---
PROCEDURE INFORMATION: Exam: CTA Head With Contrast, Arteriography Exam date and time: 08/05/2024 3:13 PM Age: 33 years old Clinical indication: Numbness and weakness; Additional info: Possible stroke TECHNIQUE: Imaging protocol: Computed tomographic angiography of the head with contrast. Exam focused on the arteries. 3D rendering (Not supervised by radiologist): MIP and/or 3D reconstructed images were created by the technologist. Radiation optimization: All CT scans at this facility use at least one of these dose optimization techniques: automated exposure control; mA and/or kV adjustment per patient size (includes targeted exams where dose is matched to clinical indication); or iterative reconstruction. Contrast material: OMNI 350; Contrast volume: 100 ml; Contrast route: INTRAVENOUS (IV); COMPARISON: CT head wo con* [id number] 08/05/2024 2:35 PM RADIATION DOSE METRICS: Total DLP (mGy-cm): 419.1 FINDINGS: ANTERIOR CIRCULATION: Right internal carotid artery: Patent. Right middle cerebral artery: Patent. Right anterior cerebral artery: Patent. Left internal carotid artery: Patent. Left middle cerebral artery: Patent. Left anterior cerebral artery: Patent. POSTERIOR CIRCULATION: Right vertebral artery: Patent. Left vertebral artery: Patent. Basilar artery: Patent. Right posterior cerebral artery: Patent. origin. Left posterior cerebral artery: Patent. origin. PROCEDURE INFORMATION: Exam: CTA Neck With Contrast Exam date and time: 08/05/2024 3:13 PM Age: 33 years old Clinical indication: Numbness and weakness; Additional info: Possible stroke TECHNIQUE: Imaging protocol: Computed tomographic angiography of the neck with contrast. Exam focused on the cervical segments of the vasculature. 3D rendering (Not supervised by radiologist): MIP and/or 3D reconstructed images were created by the technologist. Radiation optimization: All CT scans at this facility use at least one of these dose optimization techniques: automated exposure control; mA and/or kV adjustment per patient size (includes targeted exams where dose is matched to clinical indication); or iterative reconstruction. Contrast material: OMNI 350; Contrast volume: 100 ml; Contrast route: INTRAVENOUS (IV); COMPARISON: CT head wo con* [id number] 08/05/2024 2:35 PM RADIATION DOSE METRICS: Total DLP (mGy-cm): 419.1 FINDINGS: Right common carotid artery: Patent. No evidence of hemodynamically significant stenosis. Right internal carotid artery: Patent. No evidence of hemodynamically significant stenosis. Right external carotid artery: Patent. Left common carotid artery: Patent. No evidence of hemodynamically significant stenosis. Left internal carotid artery: Patent. No evidence of hemodynamically significant stenosis. Left external carotid artery: Patent. Right vertebral artery: Patent. Left vertebral artery: Patent. Soft tissues: No gross soft tissue abnormality. No evidence of fluid collection or hematoma. Bones/joints: No evidence of acute fracture or subluxation of the cervical spine. Moderate right-sided foraminal stenosis at C3-C4. CT/CT angio headneck* [id number] IMPRESSION: 1. No evidence of large vessel occlusion or acute thrombosis in the head. IMPRESSION: 1. No evidence of acute thrombosis or hemodynamically significant stenosis in the neck. 2. Moderate right-sided foraminal stenosis at C3-C4. Consider correlation with follow-up nonemergent MRI if there is concern for neural impingement. REFERENCES: NASCET CRITERIA. The degree of stenosis in the cervical segment of the internal carotid artery is based on NASCET criteria. Normal is no stenosis. Mild is less than 50% stenosis. Moderate is 50-69% stenosis. Severe is 70% to 99% stenosis. Total occlusion is no detectable patent lumen.
[2024-08-05 15:05] LABS: Bilirubin Urine Negative (Negative); Blood Urine Negative (Negative); Glucose Urine UA Negative (Normal); Ketones Urine Negative (Negative); Leukocyte Esterase Urine 1+ (Negative); Nitrate Urine Negative (Negative); Protein Urine Negative (Negative); Urine Appearance Clear (CLEAR); Urine Color Yellow (Yellow)
[2024-08-05 15:10] LABS: Bacteria Urine 1+ /hpf; Hyaline Casts Urine 0-4 /lpf; RBC Urine 0-2 /hpf (0-2)
[2024-08-05 15:20] LABS: Basophils % 0.5 %; Eosinophils # 0.1 10^3/uL (0.0-0.8); Eosinophils % 1.2 %; Hematocrit 41.6 % (36-47); Lymphocytes % 34.5 %; Mean Corpuscular HGB Conc 33.2 g/dL (30-55); Mean Corpuscular Hemoglobin 29.9 pg (27-33); Mean Platelet Volume 10.1 fL (7.4-10.4); Monocytes # 0.4 10^3/uL (0.2-0.9); Monocytes % 6.1 %; Neutrophils % 57.4 %; Nucleated Red Blood Cells % 0 %; Platelet Count 150 10^3/cmm (157-399); Red Blood Count 4.62 10^6/uL (3.85-5.65); Red Cell Distribution Width 11.7 % (12.1-15.1); White Blood Count 5.76 10^3/uL (3.29-11.43)
[2024-08-05] MEDS: iohexol 350 mg/mL 500 mL Btl (per mL) IV ×2 (15:22→15:56)
[2024-08-05 15:32] LABS: HCG, Serum Qual Negative (Negative); INR 0.86 (0.8-1.2)
[2024-08-05 15:33] LABS: Partial Thromboplastin Time 29.3 SECONDS (23.9-36.7)
[2024-08-05 15:35] LABS: Covid PCR NEGATIVE (Negative); Influenza A NEGATIVE (Negative); Influenza B NEGATIVE (Negative); Respiratory Syncytial Virus Ce NEGATIVE (Negative)
[2024-08-05 15:35] LABS: D Dimer 0.63 ug/mLFEU (0-0.59)
--- NOTE | 2024-08-05 15:38 | CTR_ITS ---
PROCEDURE INFORMATION: Exam: CTA Chest With Contrast Exam date and time: 08/05/2024 3:51 PM Age: 33 years old Clinical indication: Abnormal findings; Abnormal diagnostic tests; Elevated d-dimer; Additional info: Elevated d-dimer, chest pain, tachycardia, TECHNIQUE: Imaging protocol: Computed tomographic angiography of the chest with contrast. Exam focused on the arteries. 3D rendering (Not supervised by radiologist): MIP and/or 3D reconstructed images were created by the technologist. Radiation optimization: All CT scans at this facility use at least one of these dose optimization techniques: automated exposure control; mA and/or kV adjustment per patient size (includes targeted exams where dose is matched to clinical indication); or iterative reconstruction. Contrast material: OMNI 350; Contrast volume: 69 ml; Contrast route: INTRAVENOUS (IV); COMPARISON: CR (CHEST, ) 08/05/2024 2:37 PM RADIATION DOSE METRICS: Total DLP (mGy-cm): 295.69 FINDINGS: Pulmonary arteries: No evidence of pulmonary thromboembolism. Aorta: No evidence of aneurysmal dilatation or dissection of the thoracic aorta. Thyroid: Grossly unremarkable. Lungs: No focal consolidation. No evidence of pneumonia. Pleural spaces: No evidence of pleural effusion. No pneumothorax. Heart: No cardiomegaly. No pericardial effusion. Mediastinal space: No evidence of mediastinal mass, fluid collection or hematoma. Lymph nodes: No mediastinal or hilar adenopathy. Bones/joints: No evidence of acute fracture or aggressive osseous lesion. Soft tissues: No evidence of fluid collection or hematoma in the superficial soft tissues. Other findings: No evidence of acute abnormality in the upper abdomen. CT/CT angio chest PE protcl [id number] IMPRESSION: 1. No evidence of PE or acute aortic abnormality.
[2024-08-05 15:39] LABS: Alanine Aminotransferase 15 U/L (0-33); Albumin Level 4.5 g/dL (3.5-5.2); Alkaline Phosphatase 60 U/L (35-105); Anion Gap 17.7 (5-19); Aspartate Amino Transferase 17 U/L (0-32); Blood Urea Nitrogen 10 mg/dL (6-20); Carbon Dioxide 24 mmol/L (22-29); Chloride 100 mmol/L (98-107); Creatinine Clr Calc Pharmacy 117.1936; Globulin 2.7 g/dL (1.3-4.6); Glomerular Filtration Rate 95.8 mL/min (90-130); Glucose 97 mg/dL (65-115); Osmolality Calculated 285 mOsm/kg (285-295); Potassium 3.7 mmol/L (3.5-5.1); Sodium 138 mmol/L (136-145); Total Bilirubin 0.7 mg/dL (0.15-1.2); Total Protein 7.2 g/dL (6.6-8.7)
[2024-08-05] MEDS: sodium chloride 0.9% 500 ML 999 ML IV (15:40)
[2024-08-05] MEDS: ketorolac 30 mg/mL INJ IVP (15:41)
[2024-08-05 16:13] VITALS: BP 138/76; PULSE 86; RESP 14; O2SAT 97
[2024-08-05 16:43] VITALS: BP 126/85; PULSE 81; RESP 14; O2SAT 96
== END 2024-08-05 16:46 | disposition home or self-care (01) ==
PROVIDERS: Emergency Provider Emergency Medicine; PCP Family Medicine
DX: R51.9 Headache, unspecified (principal); M54.12 Radiculopathy, cervical region; M48.02 Spinal stenosis, cervical region; N39.0 Urinary tract infection, site not specified; Z11.52 Encounter for screening for COVID-19; Z72.0 Tobacco use
CPT/HCPCS: 36416; 70450; 70496; 70498; 71045; 71275; 80053; 81001; 82962; 84703; 85025; 85378; 85610; 85730; 87637; 93005; 96361; 96374; 99285; J1885; J7040

== ENCOUNTER → 2025-01-22 11:38 | Outpatient (BNVA) | payer OTHER, SELFPAY | PROVIDERS: PCP Family Medicine; Visit Provider Family Medicine | DX: F41.1 Generalized anxiety disorder (principal); L98.9 Disorder of the skin and subcutaneous tissue, unspecified; L27.2 Dermatitis due to ingested food; R53.83 Other fatigue; R60.9 Edema, unspecified; K90.49 Malabsorption due to intolerance, not elsewhere classified; E03.9 Hypothyroidism, unspecified | CPT/HCPCS: 80053; 82607; 82785; 83735; 84443; 85025; 85651; 86001; 86003; 86140; 86160; 86162; 86235; 86255; 86376 ==

== ENCOUNTER 2025-03-16 09:04 | Outpatient (CLI) | payer OTHER, SELFPAY | END 2025-03-16 09:05 | disposition home or self-care (01) | PROVIDERS: PCP Family Medicine; Visit Provider Dermatology | DX: Z91.014 Allergy to mammalian meats (principal) | CPT/HCPCS: 36415; 86008 ==

== ENCOUNTER 2025-04-17 16:56 | Emergency (ER) | payer SELFPAY ==
[2025-04-17 17:03] VITALS: BP 122/73; PULSE 62; RESP 17; TEMP 36.7; O2SAT 99; BMI 25.8
--- OUTSIDE RECORDS SUMMARY | 2025-04-17 17:04 | XMS_ITS | Patient Health Record ---
Author Organization [facility] Address [address] [place] [address] Care Team Providers Care Manager Support Services Name Role Phone Abel Santana Unavailable [phone] Reason For Referral No Information Problems Problem Type SNOMED Code ICD Code Onset Dates Problem Status W/U Status Risk Notes Problem Cough (75936192) Cough (786.2) 6 Problem resolved confirmed [id number] 11- Problem Generalized anxiety disorder (07572437) Anxiety, generalized (300.02) 6 Active confirmed [id number] 11- Problem Sore throat (041183581) Sore Throat (462) 6 Problem resolved confirmed [id number] 11- Problem Headache (62371560) Cephalagia (784.0) 6 Problem resolved confirmed [id number] 11- Problem Knee pain (9169947589) Knee pain (719.46) 6 Problem resolved confirmed [id number] 11- Problem Chest discomfort (329839298) Chest discomfort (786.59) 6 Problem resolved confirmed [id number] 11- Plan Of Treatment No Information
[2025-04-17 17:26] LABS: Glucose Urine UA Negative (Normal); Nitrate Urine Negative (Negative); Specific Gravity, Urine 1.020 (1.005-1.030)
[2025-04-17 17:31] LABS: Add Urine Microscopic? YES
== END 2025-04-17 17:43 | disposition left against medical advice (07) ==
PROVIDERS: Physician Assistant; Emergency Provider Family Medicine; PCP Family Medicine
DX: Z01.89 Encounter for other specified special examinations (principal); Z53.21 Procedure and treatment not carried out due to patient leaving prior to being seen by health care provider
CPT/HCPCS: 81001